=== PATIENT | female | born 1995 ===

== ENCOUNTER 2018-04-21 01:53 | Emergency (ER) | payer OTHER ==
[2018-04-21 02:15] VITALS: RESP 18
[2018-04-21] MEDS ORDERED: Lidocaine 2% w Epi 1:100,000 Inj IJ ONE ×3 (03:15→04:29)
[2018-04-21] MEDS ORDERED: Sodium Chloride 0.9% 1,000 ML IV STA (03:52)
[2018-04-21] MEDS ORDERED: Tdap Vaccine 0.5 ml Vial (10-64 yrs) IM ONE (03:52)
[2018-04-21 04:00] LABS: BASO % 0.3 % (0.0-2.0); EOS # 0.1 K/uL (0.0-0.7); EOS % 1.4 % (0.0-4.0); HEMOGLOBIN 13.4 g/dL (12.0-16.0); LYMPH # 2.9 K/uL (1.0-4.3); LYMPH % 44.6 % (20.0-40.0); MEAN CELL VOLUME 90.8 fl (81.0-99.0); MEAN CORPUSCULAR HEMOGLOBIN 29.3 pg (27.0-31.0); MEAN CORPUSCULAR HGB CONC 32.3 g/dL (33.0-37.0); MEAN PLATELET VOLUME 10.3 fl (7.2-11.7); MONO # 0.4 K/uL (0.0-0.8); MONO % 6.1 % (0.0-10.0); NEUT # 3.1 K/uL (1.8-7.0); NEUT % 47.6 % (50.0-75.0); NRBC % 0.3 % (0.0-0.0); RBC 4.57 Mil/uL (3.80-5.20); RED CELL DISTRIBUTION WIDTH 13.9 % (11.5-14.5); WHITE BLOOD COUNT 6.5 K/uL (4.8-10.8)
[2018-04-21 04:09] LABS: ALB/GLOB RATIO 1.5 (1.0-2.1); ALBUMIN 4.6 g/dL (3.5-5.0); ALT/SGPT 24 U/L (9-52); AST/SGOT 22 U/L (14-36); BLOOD UREA NITROGEN 3 mg/dl (7-17); GFR NON-AFRICAN AMERICAN > 60
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
--- NOTE | 2018-04-21 04:47 | PCM.PROC ---
Procedures Attestation:: I certify that I have explained the specified Operation(s) or Procedure(s), risks, benefits and reasonable alternatives to the Patient and/or other person responsible. The opportunity was given to ask questions and all questions answered - Laceration lidocaine 1% simple, single layer linear irrigated extensively scalp 3-0 other local infiltration simple, interrupted Site: scalp Side (if applicable): left Size (cm): 7 Description: linear Depth: simple, single layer Anesthesia used: lidocaine 1%, with EPI Anesthesia technique: local infiltration Amount (mLs): 20 Pre-repair: wound explored, irrigated extensively, deep structures intact, wound margins revised Skin layer closed with: other Size: 3-0 Number of sutures: 7 Technique: simple, interrupted
[2018-04-21 08:02] VITALS: TEMP 97.7
[2018-04-21 08:04] VITALS: BP 121/60; PULSE 87; O2SAT 99
--- NOTE | 2018-04-21 09:46 | CT ---
Date of service: 04/21/2018 PROCEDURE: CT HEAD WITHOUT CONTRAST. HISTORY: head injury COMPARISON: None available. TECHNIQUE: Axial computed tomography images were obtained through the head/brain without intravenous contrast. Radiation dose: Total exam DLP = 764.23 mGy-cm. This CT exam was performed using one or more of the following dose reduction techniques: Automated exposure control, adjustment of the mA and/or kV according to patient size, and/or use of iterative reconstruction technique. FINDINGS: HEMORRHAGE: No intracranial hemorrhage. BRAIN: No mass effect or edema. No atrophy or chronic microvascular ischemic changes. VENTRICLES: Unremarkable. No hydrocephalus. CALVARIUM: Unremarkable. Small left posterior superior scalp contusion. PARANASAL SINUSES: Mild mucosal thickening seen in the right aspect of the frontal sinus. No significant inflammatory changes. MASTOID AIR CELLS: Unremarkable as visualized. No inflammatory changes. OTHER FINDINGS: None. IMPRESSION: No acute intracranial hemorrhage. Left posterior superior parietal scalp contusion.
== END 2018-04-21 06:35 | disposition home or self-care (01) ==
LOC: H.ER 01:53
DX: S01.01XA Laceration without foreign body of scalp, initial encounter (principal); W19.XXXA Unspecified fall, initial encounter; Y92.89 Other specified places as the place of occurrence of the external cause
CPT/HCPCS: 12001; 70450; 80053; 81025; 82948; 85025; 90471; 90715; 99285; J7030

== ENCOUNTER 2018-04-21 12:08 | Emergency (ER) | payer OTHER ==
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
[2018-04-21 14:12] VITALS: TEMP 98.7; O2SAT 100
[2018-04-21 14:19] VITALS: BP 117/72; PULSE 90; RESP 20
== END 2018-04-21 15:15 | disposition home or self-care (01) ==
LOC: H.ER 12:08 → SUPCPDRO 12:08 → H.ER 15:15
DX: R42 Dizziness and giddiness (principal); R11.10 Vomiting, unspecified; M54.2 Cervicalgia
CPT/HCPCS: 81025; 96372; 99283; J1885